=== PATIENT | male | born 1930 | race Caucasian/White ===

== ENCOUNTER 2017-05-17 22:48 | Emergency (ER) | payer MEDICARE, BC ==
[2017-05-17] MEDS ORDERED: ASPIRIN 325 MG TABLET PO ONE (23:02)
--- NOTE | 2017-05-17 23:02 | Emergency Department Record ---
History of Present Illness - General Chief Complaint: Chest Pain Stated Complaint: CHEST PAIN Time Seen by Provider: 05/17/17 22:59 Source: Patient Mode of Arrival: Ambulatory Limitations: No limitations - History of Present Illness Initial Comments: The patient is here due to a 12-14 hour hx of intermittent substernal chest discomfort. The pain is off and on and lasts minutes to hours. He denies any MART , SOB, or sweating and has not taken any NTG for it. The patient did have a NSTEMI in Dec an did receive a stent then. He denies any recent illnesses or any new medicines. He does take a baby ASA and Plavix. On further questioning the patient has been having black stools for the last 2 days. He states he does have a hx of bleeding ulcers. MD Complaint: Chest pain Onset/Timin -: Hour(s) Pain Location: Substernal Pain Radiation: None Severity: Moderate Quality: Heaviness - Related Data Home Medications Medication Instructions Recorded Confirmed Last Taken Carvedilol [Carvedilol] 6.25 mg PO BID 08/18/15 05/17/17 05/16/17 Fenofibrate Nanocrystallized 145 mg PO DAILY 08/18/15 05/17/17 05/16/17 [Fenofibrate] Glipizide [Glipizide ER] 2.5 mg PO DAILY 08/18/15 05/17/17 05/16/17 Levothyroxine Sodium [Levoxyl] 125 mcg PO DAILY 08/18/15 05/17/17 05/16/17 Losartan Potassium [Cozaar] 25 mg PO DAILY 08/18/15 05/17/17 05/16/17 Aspirin [Aspir-Low] 81 mg PO QHS 05/17/17 05/17/17 05/16/17 Clopidogrel Bisulfate [Plavix] 75 mg PO DAILY 05/17/17 05/17/17 05/16/17 Metformin HCl [Glucophage] 1,000 mg PO BID 05/17/17 05/17/17 05/16/17 Ranitidine HCl [Zantac] 150 mg PO QHS 05/17/17 05/17/17 05/16/17 Allergies Allergy/AdvReac Type Severity Reaction Status Date / Time No Known Drug Allergies Allergy Verified 07/29/16 09:32 Review of Systems Constitutional: Denies: Chills, Fever Eyes: Denies: Eye discharge ENT: Denies: Congestion Respiratory: Denies: Cough, Dyspnea Past Medical History - SOCIAL HISTORY Smoking Status: Former smoker Drug Use: None - RESPIRATORY Hx Respiratory Disorders: No - CARDIOVASCULAR Hx Cardio Disorders: Yes Hx Hypertension: Yes Comment:: PAD - NEURO Hx Neuro Disorders: No - GI Hx GI Disorders: No - Hx Genitourinary Disorders: No - ENDOCRINE Hx Endocrine Disorders: Yes Hx Diabetes: Yes (Type II) - MUSCULOSKELETAL Hx Musculoskeletal Disorders: Yes - PSYCH Hx Psych Problems: No - HEMATOLOGY/ONCOLOGY Hx Hematology/Oncology Disorders: No Family Medical History Hx Diabetes: Brother/Sister Hx Heart Disease: Brother/Sister Hx HTN: Brother/Sister Physical Exam - General General Appearance: Alert, Oriented x3, Cooperative, No acute distress - Head Head exam: Atraumatic, Normocephalic, Normal inspection - Eye Eye exam: Normal appearance, PERRL - ENT Throat exam: Normal inspection. negative: Tonsillar erythema, Tonsillar exudate - Neck Neck exam: Normal inspection, Full ROM. negative: Tenderness - Respiratory Respiratory exam: Normal lung sounds bilaterally. negative: Respiratory distress - Cardiovascular Cardiovascular Exam: Regular rate, Normal rhythm, Normal heart sounds - GI/Abdominal GI/Abdominal exam: Soft, Normal bowel sounds. negative: Tenderness - Extremities Extremities exam: Normal inspection, Full ROM, Normal capillary refill. negative: Tenderness - Neurological Neurological exam: Alert, Normal gait. negative: Abnormal gait, Motor sensory deficit - Psychiatric Psychiatric exam: Normal affect, Normal mood. negative: Agitated Course - Reevaluation(s) Reevaluation #1: The patient is doing better now and states the pain is decreasing since he has been resting. 05/17/17 23:06 Reevaluation #2: The patient is doing better at this time. He states his pain has been resolved with 1 NTG. Unfortunately he did tell us after his HGB was reported to be 7.1 that he has been having black stools for a couple of days. Unfortunately we did already give him a full dose ASA since he did not provide that hx initially. 05/17/17 23:20 Reevaluation #3: The patient is doing better at this time. He is pain free and resting comfortably. I did discuss the patient with Dr. Ojeda who is the A service Attending at [facility] and she does accept the patient. 05/17/17 23:34 Reevaluation #4: I did also consult with Dr. Coyle (Cardiology) and he agrees with the plan to transfuse one unit of PRBC's and transfer the patient to [facility]. 05/17/17 23:52 Reevaluation #5: The patient is doing well. He is pain free and his 1st unit of PRBC's is infusing. 05/18/17 00:20 Medical Decision Making - Data Complexity MDM Data: Labs Ordered and/or Reviewed, X-Ray Ordered and/or Reviewed, EKG Ordered and/or Reviewed - Lab Data Result diagrams: 05/17/17 23:04 05/17/17 23:04 - EKG Data -: EKG Interpreted by Me EKG: Abnormal EKG (NSR at 89, jayne-lateral wall ischemia.) - Radiology Data Radiology results: Report reviewed (CXR: Neg for any acute abnormality.) Disposition Disposition: Transfer Clinical Impression: Unstable angina, Upper GI bleeding Disposition: Acute Care Hospital Transfer Transfer To: [facility] Reason For Transfer: NSTEMI Accepting Physician: Lynette Time Discussed w/Accepting Physician: 23:36 Condition: (2) Stable Forms: Patient Portal Access Time of Disposition: 23:36
[2017-05-17 23:07] LABS: HEMATOCRIT 22.7 % (42.0-52.0); HEMOGLOBIN 7.1 gm/dl (14.0-18.0); MEAN CELL VOLUME 116.4 fl (81-97); MEAN CORPUSCULAR HEMOGLOBIN 36.4 pg (27-33); MEAN CORPUSCULAR HGB CONC 31.3 g/dl (32-36); MEAN PLATELET VOLUME 9.1 fl (7.4-10.4); PLATELET COUNT 493 K/uL (130-400); RED BLOOD COUNT 1.95 M/uL (4.40-5.70); RED CELL DISTRIBUTION WIDTH 19.8 % (11.5-14.5); WHITE BLOOD COUNT W/O DIFF 9.1 K/uL (4.2-12.2)
[2017-05-17] MEDS: NITROGLYCERIN 0.4MG SL TABLET #25 BTL SL PRN (23:08)
[2017-05-17 23:15] LABS: INR 1.04; PARTIAL THROMBOPLASTIN TIME 24.4 SECONDS (24.5-39.1); PROTHROMBIN TIME (PATIENT) 11.7 SECONDS (9.5-12.1)
[2017-05-17 23:16] LABS: ANION GAP 10.6 (7-16); BLOOD UREA NITROGEN 25 mg/dL (9-20); CARBON DIOXIDE 22.4 mmol/L (22-30); CREATINE PHOSPHOKINASE 48 U/L (55-170); CREATININE 1.1 mg/dL (0.66-1.25); EST GLOMERULAR FILTRATION RATE > 60 ml/min; GLUCOSE,RANDOM 196 mg/dL (70-110)
[2017-05-17 23:43] LABS: ABO GROUP O; IMMED. SPIN CROSSMATCH COMPATIBLE; RH TYPE POSITIVE
[2017-05-17 23:50] LABS: ANTIBODY SCREEN NEGATIVE (NEGATIVE)
[2017-05-17 23:51] LABS: TROPONIN I 0.132 ng/mL (0.00-0.034)
[2017-05-18] MEDS: NITROGLYCERIN 0.4MG SL TABLET #25 BTL SL PRN (00:35)
--- NOTE | 2017-05-19 11:00 | RADIOLOGY REPORT ---
EXAM: CHEST AP or PA ONLY HISTORY: ACUTE GENERALIZED CHEST PAIN. TECHNIQUE: AP chest. COMPARISON: 02/15/2017 FINDINGS: Lungs are clear. Cardiac silhouette, diaphragm, and osseous structures are unremarkable for age. IMPRESSION: NEGATIVE CHEST. JOB NUMBER: [id number] MTDD
== END 2017-05-18 01:10 | disposition short-term general hospital (02) ==
LOC: ER 22:48
DX: I20.0 Unstable angina (principal); K92.2 Gastrointestinal hemorrhage, unspecified; E11.9 Type 2 diabetes mellitus without complications; I10 Essential (primary) hypertension; I25.2 Old myocardial infarction; Z87.891 Personal history of nicotine dependence; Z79.84 Long term (current) use of oral hypoglycemic drugs; Z79.02 Long term (current) use of antithrombotics/antiplatelets
CPT/HCPCS: 99285 ×2; 36430; 82550; 85730; 85610; 82553; 84484; 80048; 85027; 86900; 86901; 86850; 71010; 93005; 93010; P9016

== ENCOUNTER 2017-10-02 05:21 | Emergency (ER) | payer MEDICARE, BC ==
[2017-10-02] MEDS ORDERED: ASPIRIN 81 MG CHEWABLE TABLET PO ONE (05:31)
--- NOTE | 2017-10-02 05:34 | Emergency Department Record ---
History of Present Illness - General Chief Complaint: Shortness of breath Stated Complaint: MART/CHEST PAIN Time Seen by Provider: 10/02/17 05:30 Source: Patient Mode of Arrival: Ambulatory Limitations: No limitations - History of Present Illness Initial Comments: 87 yo male presents to ED for evaluation of worsening chest pain and difficulty breathing for the past 4 hours. Patient reports similar symptoms related to low hemoglobin, denies fevers, chills, or recent illness. 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 MD Complaint: Chest pain, Shortness of breath Onset/Timin -: Hour(s) Severity scale (1-10): 3 Quality: Aching Consistency: Constant Worsens With: Nothing Associated Symptoms: Chest pain - Related Data Allergies Allergy/AdvReac Type Severity Reaction Status Date / Time No Known Drug Allergies Allergy Verified 07/29/16 09:32 Travel Screening - Travel/Exposure Within Last 30 Days Have you traveled within the last 30 days?: No Review of Systems Constitutional: Denies: Chills, Fever, Malaise, Night sweats Eyes: Denies: Eye discharge, Eye pain ENT: Denies: Congestion, Ear pain, Epistaxis Respiratory: Reports: Dyspnea. Denies: Cough Cardiovascular: Reports: Chest pain, Dyspnea on exertion. Denies: Palpitations , Paroxysmal nocturnal dyspnea Endocrine: Denies: Fatigue, Heat or cold intolerance Gastrointestinal: Denies: Abdominal pain, Nausea, Vomiting Genitourinary: Denies: Incontinence, Retention Musculoskeletal: Denies: Arthralgia, Back pain, Gout, Joint swelling Skin: Denies: Bruising, Change in color Neurological: Denies: Abnormal gait, Confusion, Headache, Seizure Psychiatric: Denies: Anxiety Hematological/Lymphatic: Reports: Anemia. Denies: Blood Clots Past Medical History - SOCIAL HISTORY Smoking Status: Former smoker Alcohol Use: None Drug Use: None - RESPIRATORY Hx Respiratory Disorders: No - CARDIOVASCULAR Hx Cardio Disorders: Yes Hx Hypertension: Yes Comment:: PAD - NEURO Hx Neuro Disorders: No - GI Hx GI Disorders: No Hx Diverticulitis: Yes Hx Ulcer: Yes (bleeding) - Hx Genitourinary Disorders: No Hx Prostate Problems: Yes - ENDOCRINE Hx Endocrine Disorders: Yes Hx Diabetes: Yes (Type II) - MUSCULOSKELETAL Hx Musculoskeletal Disorders: Yes - PSYCH Hx Psych Problems: No - HEMATOLOGY/ONCOLOGY Hx Hematology/Oncology Disorders: No Hx Blood Transfusions: Yes (w/bleeding ulcer) Hx Blood Transfusion Reaction: No Family Medical History Any Significant Family History?: Yes Hx Diabetes: Brother/Sister Hx Heart Disease: Brother/Sister Hx HTN: Brother/Sister Physical Exam - General General Appearance: Alert, Oriented x3, Cooperative, Moderate distress Limitations: No limitations - Head Head exam: Atraumatic, Normocephalic, Normal inspection Head exam detail: negative: Abrasion, Contusion, Almeida's sign, General tenderness, Hematoma, Laceration - Eye Eye exam: Normal appearance. negative: Conjunctival injection, Periorbital swelling, Periorbital tenderness, Scleral icterus - ENT Ear exam: negative: Auricular hematoma, Auricular trauma Nasal Exam: negative: Active bleeding, Discharge, Dried blood, Foreign body Mouth exam: negative: Drooling, Laceration, Muffled voice, Tongue elevation - Neck Neck exam: Normal inspection. negative: Meningismus, Tenderness - Respiratory Respiratory exam: Normal lung sounds bilaterally. negative: Rales, Respiratory distress, Rhonchi, Stridor - Cardiovascular Cardiovascular Exam: Regular rate, Normal rhythm, Normal heart sounds - GI/Abdominal GI/Abdominal exam: Soft. negative: Rebound, Rigid, Tenderness - Rectal Rectal exam: Deferred - exam: Deferred - Extremities Extremities exam: Normal inspection. negative: Pedal edema, Tenderness - Back Back exam: Denies: CVA tenderness (R), CVA tenderness (L) - Neurological Neurological exam: Alert, Normal gait, Oriented X3 - Psychiatric Psychiatric exam: Normal affect, Normal mood - Skin Skin exam: Pallor Type of lesion: negative: abrasion Course Vital Signs 10/02/17 05:29 Temperature 97.6 F Pulse Rate [ 98 H Pulse Ox Probe] Respiratory 20 Rate Blood Pressure 142/87 [Left Arm] Pulse Ox 98 - Reevaluation(s) Reevaluation #1: 10/02/17 05:32 EKG: NSR 95 Normal axis, normal intervals Worsening ST depression V4-V6 c/w Reevaluation #2: 10/02/17 06:14 Labs reviewed, Troponin 0.042, Hgb 7.7, HCT 25.7. Labs are otherwise grossly unremarkable for an acute process. CXR: Chronic changes, nothing acute. ASA given, and the patient is resting CP-free. Patient and his were updated on all results thus far, will initiate transfer to [facility] for further evaluation. Reevaluation #3: 10/02/17 06:53 Case was discussed with Dr. Lua, will accept transfer for cardiac evaluation. Medical Decision Making - Lab Data Result diagrams: 10/02/17 05:30 10/02/17 05:30 Disposition Disposition: Transfer Clinical Impression: NSTEMI (non-ST elevated myocardial infarction), Chronic anemia Transfer To: [facility] Reason For Transfer: NSTEMI Accepting Physician: Stoney Time Discussed w/Accepting Physician: 06:53 Condition: (2) Stable Forms: Patient Portal Access Time of Disposition: 06:53 Quality - Quality Measures Quality Measures: N/A - Blood Pressure Screening Does Patient Have Any of the Following: No Blood Pressure Classification: Pre-Hypertensive BP Reading Systolic Measurement: 137 Diastolic Measurement: 71 Screening for High Blood Pressure: < Pre-Hypertensive BP, F/U Documented > [ [id number]] Pre-Hypertensive Follow-up Interventions: Referral to alternative/primary care provider.
[2017-10-02 05:40] LABS: HEMATOCRIT 25.7 % (42.0-52.0); HEMOGLOBIN 7.7 gm/dl (14.0-18.0); MEAN CELL VOLUME 120.1 fl (81-97); MEAN CORPUSCULAR HEMOGLOBIN 35.9 pg (27-33); MEAN PLATELET VOLUME 9.2 fl (7.4-10.4); PLATELET COUNT 602 K/uL (130-400); RED BLOOD COUNT 2.14 M/uL (4.40-5.70); RED CELL DISTRIBUTION WIDTH 21.2 % (11.5-14.5); WHITE BLOOD COUNT W/O DIFF 5.5 K/uL (4.2-12.2)
[2017-10-02 05:55] LABS: BLOOD UREA NITROGEN 19 mg/dL (8-23); CREATININE 0.9 mg/dL (0.7-1.2); EST GLOMERULAR FILTRATION RATE > 60 mL/min; GLUCOSE,RANDOM 168 mg/dL (74-109); TOTAL PROTEIN 7.2 g/dL (6.6-8.7)
[2017-10-02 06:00] LABS: ALB/GLOB RATIO 1.5 (1.1-1.8); ALBUMIN 4.3 g/dL (4.0-5.0); ALKALINE PHOSPHATASE 46 U/L (40-129); ALT/SGPT 17 U/L (<41); AST/SGOT 32 U/L (10.0-50.0); CREATINE PHOSPHOKINASE 48 U/L (39-308)
[2017-10-02 06:22] LABS: ABO GROUP O; ANTIBODY SCREEN NEGATIVE (NEGATIVE); RH TYPE POSITIVE
--- NOTE | 2017-10-02 13:05 | RADIOLOGY REPORT ---
EXAM: CHEST, TWO VIEWS HISTORY: CHEST PAIN. TECHNIQUE: PA and lateral views of the chest were obtained. Comparison: Two view chest 02/15/17. FINDINGS: The heart size is at about the upper limits of normal. The lungs appear hyperinflated suggesting underlying COPD. There is progressive interstitial prominence particularly in the bases compared to the prior study and some blunting of the right lateral costophrenic angle probably by a small pleural effusion. Clinical correlation as to mild CHF superimposed on COPD is suggested. No pneumothorax evident. Calcification and mild torsion of the aorta as before. IMPRESSION: 1. HYPERINFLATION CONSISTENT WITH COPD. 2. PROGRESSIVE INTERSTITIAL MARKINGS PARTICULARLY IN THE BASES ALONG WITH PROBABLY A SMALL RIGHT PLEURAL EFFUSION SUGGESTING MILD CHF SUPERIMPOSED ON COPD. FOLLOW-UP FILMS ARE SUGGESTED. 3. CALCIFICATION AND TORSION OF THE AORTA BEFORE. JOB NUMBER: [id number] MTDD
== END 2017-10-02 08:55 | disposition short-term general hospital (02) ==
LOC: ER 05:21
DX: D64.9 Anemia, unspecified (principal); I21.4 Non-ST elevation (NSTEMI) myocardial infarction; E11.9 Type 2 diabetes mellitus without complications; I10 Essential (primary) hypertension; Z87.891 Personal history of nicotine dependence; Z95.5 Presence of coronary angioplasty implant and graft
CPT/HCPCS: 71020; 80053; 82550; 82553; 84484; 85027; 86850; 86900; 86901; 93005; 93010; 99285